=== PATIENT | male | born 1950 | race Caucasian/White ===

== ENCOUNTER 2017-02-09 14:25 | Emergency (ER) | payer MEDICARE ==
[2017-02-09] MEDS ORDERED: LIDOCAINE 5% PATCH ONE (15:28)
== END 2017-02-09 15:41 | disposition home or self-care (01) ==
LOC: ED 14:25
DX: M54.5 Low back pain (principal); M62.830 Muscle spasm of back; Q61.3 Polycystic kidney, unspecified; I12.0 Hypertensive chronic kidney disease with stage 5 chronic kidney disease or end stage renal disease; N18.6 End stage renal disease; Z99.2 Dependence on renal dialysis; Z87.891 Personal history of nicotine dependence
CPT/HCPCS: 99282 ×2; A9270